=== PATIENT | female | born 1985 | race Caucasian/White ===

== ENCOUNTER 2016-12-29 14:10 | Emergency (ER) | payer MEDICAID ==
[~2016-12-29] VITALS: Ht 170.2 cm; Wt 77.0 kg
[2016-12-29] MEDS ORDERED: KETOROLAC 60MG/2ML VIAL IM ONE (18:15)
[2016-12-29 19:14] LABS: HEMATOCRIT. 38.8 % (36.0-48.0); HEMOGLOBIN. 13.5 g/dL (12.0-16.0); MEAN CORPUSCULAR VOLUME 97.7 fL (81.0-99.0); PLATELET 279 x1000/uL (130-400); RED BLOOD CELL COUNT 3.97 mill/uL (4.2-5.4); RED CELL DISTRIBUTION WIDTH 12.6 % (11.6-14.6)
[2016-12-29 19:26] LABS: CARBON DIOXIDE 29 mEq/L (21-32); CHLORIDE 104 mEq/L (98-107)
[2016-12-29 19:30] LABS: PLATELET ESTIMATE NORMAL
[2016-12-29 19:34] LABS: HCG SCREEN NEGATIVE
[2016-12-29 22:00] VITALS: BP 111/66
== END 2016-12-29 22:07 | disposition home or self-care (01) ==
LOC: ER 14:52
DX: L03.114 Cellulitis of left upper limb (principal); F15.10 Other stimulant abuse, uncomplicated; F17.200 Nicotine dependence, unspecified, uncomplicated
CPT/HCPCS: 36415; 73080; 73090; 80048; 84703; 85007; 85027; 96372; 99285; J1885

== ENCOUNTER 2017-02-02 10:56 | Emergency (ER) | payer MEDICAID ==
[~2017-02-02] VITALS: Ht 170.2 cm; Wt 87.0 kg
[2017-02-02] MEDS ORDERED: ONDANSETRON HCL 4MG/2ML VIAL IV STA (15:46)
[2017-02-02] MEDS ORDERED: MORPHINE SULFATE 4 MG/ML CPJ (NOT FOR IM USE) IV STA (15:46)
[2017-02-02] MEDS ORDERED: SODIUM CHLORIDE 0.9% 1,000 ML IV ONE (15:46)
[2017-02-02] MEDS ORDERED: KETOROLAC 30MG/ML VIAL IV STA (16:07)
[2017-02-02 16:12] LABS: CLARITY URINE CLEAR (CLEAR); COLOR URINE YELLOW (YELLOW); KETONES URINE NEGATIVE (NEGATIVE); LEUKOCYTE ESTERASE URINE TRACE (NEGATIVE); NITRITE URINE NEGATIVE (NEGATIVE); OCCULT BLOOD URINE NEGATIVE (NEGATIVE); PROTEIN URINE NEGATIVE (NEGATIVE); SPECIFIC GRAVITY URINE 1.025 (1.005-1.030); UROBILINOGEN URINE 0.2 E.U./dL (0.2-1.0)
[2017-02-02 16:16] LABS: BASOPHILS % 0.5 % (0.0-2.0); EOSINOPHILS % 1.7 % (0.0-5.0); HEMATOCRIT. 39.7 % (36.0-48.0); HEMOGLOBIN. 13.5 g/dL (12.0-16.0); LYMPHOCYTES % 37.3 % (20.0-50.0); MEAN CORPUSCULAR HEMOGLOBIN 32.8 pg (28.0-32.0); MEAN CORPUSCULAR VOLUME 96.2 fL (81.0-99.0); MEAN PLATELET VOLUME 8.6 fl (7.4-10.4); NEUTROPHILS % 51.5 % (40.0-76.0); PLATELET 304 x1000/uL (130-400); RED BLOOD CELL COUNT 4.13 mill/uL (4.2-5.4); RED CELL DISTRIBUTION WIDTH 12.8 % (11.6-14.6)
[2017-02-02 16:26] LABS: INR 0.9; PROTHROMBIN TIME 9.7 sec (9.4-11.6)
[2017-02-02 16:29] LABS: CARBON DIOXIDE 25 mEq/L (21-32); CHLORIDE 107 mEq/L (98-107)
[2017-02-02 19:45] VITALS: BP 119/66
[2017-02-02] MEDS ORDERED: IOHEXOL-300 100 ML BOTTLE ONE (20:04)
== END 2017-02-02 21:04 | disposition home or self-care (01) ==
LOC: ER 12:03
DX: R10.30 Lower abdominal pain, unspecified (principal); F17.200 Nicotine dependence, unspecified, uncomplicated; F15.10 Other stimulant abuse, uncomplicated; Z98.890 Other specified postprocedural states
CPT/HCPCS: 36415; 74177; 80053; 81001; 81025; 83690; 85025; 85610; 96361; 96374; 96375; 99285; J1885; J2405; J7030; Q9967; Z7610; J2270